=== PATIENT | male | born 1955 | race African-American/Black ===

== ENCOUNTER 2016-10-16 09:19 | Emergency (ER) | payer OTHER ==
[~2016-10-16] VITALS: Ht 175.3 cm; Wt 94.8 kg
[~2016-10-16 09:19] MED LIST: HYDR-971 PO
[2016-10-16 09:24] VITALS: BP 120/79
--- NOTE | 2016-10-16 09:54 | PDOC ---
OBSERVATION CRITERIA FORMS Observation Criteria Form: GENERAL CRITERIA: OBSERVATION CARE USE THIS FORM ONLY WHEN INPATIENT ADMISSION CRITERIA ARE NOT MET. (Place X for any and all applicable criteria): Placement for observation care may be appropriate for a patient with ALL of the following(1)(2)(3))(4): []I. Observation care is appropriate as indicated by care requirements that are ALL of the following: []a) Beyond the scope of a usual outpatient care episode [A] []b) Expected to be short term [B] []c) Appropriate for observation care as indicated by ANY ONE of the following: []i) Diagnostic evaluation needed (eg, rule out HI) []ii) Acute treatment and response evaluation needed (eg, drug reaction) []iii) Monitoring for event (eg, arrhythmia) or recovery (eg, from drug ingestion) [X]II. Observation care is needed for ANY ONE of the following: []a) Significant adverse reaction to treatment or procedure []b) Abnormal finding (eg from lab. test, imaging study, physical exam) prompting significant concern(5)(6))(7) []c) Cardiovascular abnormalities (eg, hypertensive urgency, monitoring for cardiac injury)(7)(8)(9)(10))(11)(12) [X]d) Respiratory abnormalities (eg, dyspnea, bronchospasm, suspected aspiration)(11)(12)(15)(16) []e) Infectious processes (eg, hepatitis, observation for antibiotic response)(6)(17)(15)( 18)(19)(20) []f) Neurologic abnormalities (eg, unexplained abnormal mental status, multiple sclerosis exacerbation)(21) []g) Gastroenterologic problems (eg, pancreatitis; evaluation for suspected : ileus, obstruction, or appendicitis) []h) Obstetric issues (eg, active spontaneous ; suspected: ectopic , active labor, or significant antepartum complication) []i) Head and neck disease (eg, acute glaucoma, severe labyrinthitis) []j) Electrolyte or metabolic derangements (eg, sodium greater than 150 mEq /L (mmol/L)(18)(24) []k) Injuries (eg, snake bite, vehicular trauma(25)(26)(27)(28) []l) Control of severe vomiting or temperature abnormalities needed(29)(30) (31) []m) Severe pain requiring acute management []n) Behavioral health issues requiring further evaluation and disposition arrangement, including a patient who is ANY ONE of the following (34)(35)( 36)(37) []i) A danger to self (eg, self-mutilating or suicidal behavior) []ii) A danger to others (eg, assaultive or homicidal behavior) []iii) Incapacitated because of grave disability (eg, severe regression with inability to provide for self) []iv) Experiencing withdrawal or other drug-induced disorder []o) Monitoring or clinical intervention, including ANY ONE of the following [A] (11)(17): []i) Repetitive vital signs, neurologic signs, or vascular checks(6) (7)(8)(14)(15)(16)(30)(21)(23)(31)(38) []ii) Cardiac or respiratory monitoring(8)(9)(10)(13)(14)(15)(16) []iii) monitoring []iv) IV fluid replacement []v) IV medication or electrolyte infusions []vi) Respiratory therapy []vii) Rapid diagnostic testing (eg, observation pending laboratory or other testing results)(6)(9)(10)(23)(30)(31) []viii) Oxygen supplementation []ix) Other care requirements that exceed usual outpatient care []p) A child whose situation includes ANY ONE of the following (5)(6)(14)(15) (40)(41)(42)(31)(39)(43): []i) Clinical response to outpatient therapy uncertain []ii) Outpatient supervision by parents or caregivers uncertain []q) Monitoring needed after treatment []r) Temperature abnormalities requiring further evaluation []s) Poisoning The original [employer] [facility] [place] content created by [employer] has been revised. The portions of the content which have been revised are identified through the use of italic text, and [facility] [employer] has neither reviewed nor approved the modified material. All other unmodified content is copyright [employer] [facility] [place]. Please see references footnoted in the original [employer] [facility] [place] edition 2016 OCF completed for patient?: Yes KYRA MENDOZA Oct 16, 2016 09:54
[2016-10-16] MEDS ORDERED: IV NORMAL SALINE 1000ML BAG 1,000 ML IV SCH (10:20)
--- NOTE | 2016-10-16 10:25 | PHYS DOC ---
Past Medical History Past Medical History: COPD, CVA, Depression, Diabetes-Type II, GERD, Hypertension, Stroke Additional Past Medical Histor: gout, chronic neck pain,DDD Past Surgical History: Other Additional Past Surgical Histo: facial reconstruction Additional Information: 0.5 PPD Alcohol Use: None Drug Use: None Adult General Chief Complaint Chief Complaint: SHORTNESS OF BREATH HPI HPI Patient is a 61 year old male who presents with complaint of cough for the past 2 weeks. Patient states that his cough has become productive over the past few days of green sputum. Patient states he's been having headaches and has been having coughing spells that makes him feel like he will pass out. Patient has history of COPD and has been taking Spiriva and Advair at home. Patient states that he has an albuterol inhaler but has not been using it to help with symptoms. Patient states that he has been getting worsening shortness of breath with exertion. Patient rates the pain and has had currently as 9 out of 10. Patient states that it worsens with cough. Patient denies any fevers. Patient states that he did receive his flu shot this fall. Review of Systems Review of Systems Constitutional: Denies fever or chills [] Eyes: Denies change in visual acuity, redness, or eye pain [] HENT: Denies nasal congestion or sore throat [] Respiratory: Productive cough, shortness of breath [] Cardiovascular: Denies chest pain or edema [] GI: Denies abdominal pain, nausea, vomiting, bloody stools or diarrhea [] : Denies dysuria or hematuria [] Musculoskeletal: Denies back pain or joint pain [] Integument: Denies rash or skin lesions [] Neurologic: Headache, denies focal weakness or sensory changes [] Endocrine: Denies polyuria or polydipsia [] Current Medications Current Medications Current Medications Medications (Trade) Dose Ordered Sig/Justina Start Time Stop Time Status Last Admin Dose Admin Albuterol/ Ipratropium (Duoneb) 6 ml 1X ONCE 10/16/16 10:30 10/16/16 10:31 DC 10/16/16 10:56 6 ML Fentanyl Citrate (Fentanyl 2ml Vial) 50 mcg PRN Q15MIN PRN 10/16/16 10:30 10/16/16 12:24 DC 10/16/16 10:51 50 MCG Levofloxacin (Levaquin) 750 mg 1X ONCE 10/16/16 12:00 10/16/16 12:01 DC 10/16/16 12:18 750 MG Methylprednisolone Sodium Succinate (Solu-Medrol 125mg Vial) 125 mg 1X ONCE 10/16/16 10:30 10/16/16 10:31 DC 10/16/16 10:50 125 MG Sodium Chloride (Iv Sodium Chloride 0.9% 1000ml Bag) 1,000 ml @ 1,000 mls/hr Q1H 10/16/16 10:20 10/16/16 11:19 DC 10/16/16 10:49 1,000 MLS/HR Allergies Allergies Allergies Coded Allergies Type Severity Reaction Last Updated Verified Sulfa (Sulfonamide Antibiotics) Allergy Unknown HIVES 11/28/14 No Physical Exam Physical Exam Constitutional: Alert, afebrile, appears in mild to moderate discomfort. [] HENT: Normocephalic, atraumatic, bilateral external ears normal, oropharynx moist, no oral exudates, nose normal. [] Eyes: PERRLA, EOMI, conjunctiva normal, no discharge. [] Neck: Normal range of motion, no tenderness, supple, no stridor. [] Cardiovascular:Heart rate regular rhythm, no murmur [] Lungs & Thorax: Mild to moderate restriction of air movement bilaterally, mild expiratory wheezes, no rales [] Abdomen: Bowel sounds normal, soft, no tenderness, no masses, no pulsatile masses. [] Skin: Warm, dry, no erythema, no rash. [] Back: No tenderness, no CVA tenderness. [] Extremities: No tenderness, no cyanosis, no clubbing, ROM intact, no edema. [] Neurologic: Alert and oriented X 3, normal motor function, normal sensory function, no focal deficits noted. [] Current Patient Data Vital Signs Vital Signs Date Time Temp Pulse Resp B/P Pulse Ox O2 Delivery O2 Flow Rate FiO2 10/16/16 10:51 18 98 Room Air 10/16/16 09:24 98.5 85 120/79 98.5 Lab Values Laboratory Tests Test 10/16/16 10:41 White Blood Count 6.0x10^3/uL (4.0-11.0) Red Blood Count 4.56x10^6/uL (4.30-5.70) Hemoglobin 13.3g/dL (13.0-17.5) Hematocrit 39.9% (39.0-53.0) Mean Corpuscular Volume 87fL (79-100) Mean Corpuscular Hemoglobin 29pg (25-35) Mean Corpuscular Hemoglobin Concent 33g/dL (31-37) Red Cell Distribution Width 15.9% (11.5-14.5) H Platelet Count 187x10^3/uL (140-400) Neutrophils (%) (Auto) 65% (31-73) Lymphocytes (%) (Auto) 27% (24-48) Monocytes (%) (Auto) 6% (0-9) Eosinophils (%) (Auto) 1% (0-3) Basophils (%) (Auto) 1% (0-3) Neutrophils # (Auto) 4.0x10^3uL (1.8-7.7) Lymphocytes # (Auto) 1.6x10^3/uL (1.0-4.8) Monocytes # (Auto) 0.4x10^3/uL (0.0-1.1) Eosinophils # (Auto) 0.1x10^3/uL (0.0-0.7) Basophils # (Auto) 0.0x10^3/uL (0.0-0.2) Sodium Level 140mmol/L (136-145) Potassium Level 4.1mmol/L (3.5-5.1) Chloride Level 103mmol/L (98-107) Carbon Dioxide Level 25mmol/L (21-32) Anion Gap 12 (6-14) Blood Urea Nitrogen 14mg/dL (8-26) Creatinine 1.2mg/dL (0.7-1.3) Estimated GFR (Cockcroft-Gault) 74.0 BUN/Creatinine Ratio 12 (6-20) Glucose Level 196mg/dL (70-99) H Calcium Level 9.4mg/dL (8.5-10.1) Total Bilirubin 0.4mg/dL (0.2-1.0) Aspartate Amino Transferase (AST) 16U/L (15-37) Alanine Aminotransferase (ALT) 43U/L (16-63) Alkaline Phosphatase 77U/L (46-116) Creatine Kinase 130U/L (39-308) Creatine Kinase MB (Mass) 1.4ng/mL (0.0-3.6) Creatine Kinase MB Relative Index 1.1% (0-4) Troponin I Quantitative < 0.017ng/mL (0.000-0.055) VQ-Qro-Q-Type Natriuretic Peptide 21pg/mL (0-124) Total Protein 7.5g/dL (6.4-8.2) Albumin 3.7g/dL (3.4-5.0) Albumin/Globulin Ratio 1.0 (1.0-1.7) Laboratory Tests 10/16/16 10:41 Laboratory Tests 10/16/16 10:41 EKG EKG Interpreted by me: Heart rate 84, sinus rhythm, leftward axis, normal intervals no acute ST/T-wave abnormalities present [] Radiology/Procedures Radiology/Procedures [facility] [address] [place] [address] IMAGING REPORT Signed PATIENT: OMER WATTS ACCOUNT: [id number] : 1955 LOCATION: ER AGE: 61 SEX: M EXAM STATUS: PRE ER ORD. PHYSICIAN: JAYDEN WILSON MD REASON: cough for 2 weeks PROCEDURE: PORTABLE CHEST 1V EXAM: Chest, single view. HISTORY: Cough. COMPARISON: 02/13/2016. FINDINGS: A frontal view of the chest is obtained. There is no infiltrate, effusion or pneumothorax. The heart is normal in size. There is a nodular opacity overlying the right lower lobe likely due to a nipple shadow. IMPRESSION: 1. No acute pulmonary finding. 2. Small nodular opacity overlying the right lower lobe likely due to a nipple shadow. Follow-up following placement of nipple markers can be performed to exclude a pulmonary nodule in this location. DICTATED and SIGNED BY: CISCO AGUILAR MD DATE: 10/16/16 1043 CC: CECELIA HA; JAYDEN WILSON MD ~ [] Course & Med Decision Making Course & Med Decision Making Pertinent Labs and Imaging studies reviewed. (See chart for details) The patient was given DuoNeb and IV Solu-Medrol in the emergency department. Patient's chest x-ray does not show effusion or consolidation, however clinically the patient is producing green sputum. This patient with history of COPD may still have the beginnings of atypical pneumonia, thus the patient will be started on oral Levaquin for treatment. Patient will also be continued on prednisone therapy as outpatient. Due to history diabetes, I recommended that for the next 4 days, the patient increase his glipizide prescription to 7.5 mg in the morning and 5 mg at night with meals. Recommended strict monitoring of patient's blood sugars at home. The patient's radiology read noted a right lower lung density which appears consistent with a nipple shadow. Advised follow -up in 2-3 days a primary doctor and return to emergency department for any worsening symptoms. Patient voiced understanding and in agreement with treatment plan. Dragon Disclaimer Dragon Disclaimer This electronic medical record was generated, in whole or in part, using a voice recognition dictation system. Departure Departure Impression: Primary Impression: Cough Additional Impression: COPD exacerbation Disposition: 01 HOME, SELF-CARE Condition: IMPROVED Referrals: CECELIA HA (PCP) Patient Instructions: Chronic Obstructive Pulmonary Disease Exacerbation, Cough , Adult Additional Instructions: For the next 4 days, it is recommended that you take your glipizide medication as follows: 7.5 mg in the morning and 5 mg at nighttime. You'll be treated with a 5 day course of prednisone for treatment of your COPD exacerbation. He will also be prescribed an antibiotic as there is suspicion you may have early pneumonia that is not showing up on your chest x-ray at this time. Follow-up with your primary doctor in 2-3 days. Return to the emergency department for any worsening symptoms. Scripts Albuterol Sulfate (Proair Hfa Inhaler)8.5 Gm Hfa.aer.ad2 Puff INH Q4-6HRS PRN SHORTNESS OF BREATH #1 INHALER Ref 0 Prov:JAYDEN WILSON MD 10/16/16 Levofloxacin (Levaquin)750 Mg Tablet1 Tab PO DAILY #4 TAB Prov:JAYDEN WILSON MD 10/16/16 Prednisone 20 Mg Tablet1 Tab PO BID #8 TAB Begin your first dose tomorrow morning. Prov:JAYDEN WILSON MD 10/16/16 Problem Qualifiers JAYDEN WILSON MD Oct 16, 2016 10:25
--- NOTE | 2016-10-16 10:28 | EKG ---
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
[2016-10-16] MEDS ORDERED: FENTANYL PF 100 MCG/2 ML VIAL. IV PRN (10:30)
[2016-10-16] MEDS ORDERED: methylPREDNISolone SOD SUCC PF 125 MG/2 ML VIAL. IV ONE (10:30)
[2016-10-16] MEDS ORDERED: IPRATRPIUM/ALBUTEROL 0.5/2.5MG 3 ML NEBU. NEB ONE (10:30)
--- NOTE | 2016-10-16 10:47 | RAD ---
EXAM: Chest, single view. HISTORY: Cough. COMPARISON: 02/13/2016. FINDINGS: A frontal view of the chest is obtained. There is no infiltrate, effusion or pneumothorax. The heart is normal in size. There is a nodular opacity overlying the right lower lobe likely due to a nipple shadow. IMPRESSION: 1. No acute pulmonary finding. 2. Small nodular opacity overlying the right lower lobe likely due to a nipple shadow. Follow-up following placement of nipple markers can be performed to exclude a pulmonary nodule in this location.
[2016-10-16 10:53] LABS: BASO % 1 % (0-3); EOS % 1 % (0-3); HEMATOCRIT 39.9 % (39.0-53.0); HEMOGLOBIN 13.3 g/dL (13.0-17.5); LYMPH # 1.6 x10^3/uL (1.0-4.8); LYMPH % 27 % (24-48); MEAN CORPUSCULAR HEMOGLOBIN 29 pg (25-35); MEAN CORPUSCULAR HGB CONC 33 g/dL (31-37); MEAN CORPUSCULAR VOLUME 87 fL (79-100); MONO % 6 % (0-9); NEUT % 65 % (31-73); PLATELET COUNT 187 x10^3/uL (140-400); RED BLOOD COUNT 4.56 x10^6/uL (4.30-5.70); RED CELL DISTRIBUTION WIDTH 15.9 % (11.5-14.5)
[2016-10-16 11:05] LABS: CALCIUM 9.4 mg/dL (8.5-10.1); CREATININE 1.2 mg/dL (0.7-1.3); POTASSIUM 4.1 mmol/L (3.5-5.1)
[2016-10-16 11:11] LABS: ALBUMIN 3.7 g/dL (3.4-5.0); TOTAL BILIRUBIN 0.4 mg/dL (0.2-1.0); TOTAL PROTEIN 7.5 g/dL (6.4-8.2)
[2016-10-16 11:20] LABS: CKMB INDEX 1.1 % (0-4); CKMB MASS 1.4 ng/mL (0.0-3.6)
[2016-10-16] MEDS ORDERED: LEVO750T31 PO (11:56)
[2016-10-16] MEDS ORDERED: PROAIR HFA8.5 GM INH (11:56)
[2016-10-16] MEDS ORDERED: PRED20TA PO (11:56)
[2016-10-16] MEDS ORDERED: LEVOFLOXACIN 750 MG TABLET. PO ONE (12:00)
== END 2016-10-16 12:24 | disposition home or self-care (01) ==
LOC: ER 09:19
DX: J44.1 Chronic obstructive pulmonary disease with (acute) exacerbation (principal); F32.9 Major depressive disorder, single episode, unspecified; E11.9 Type 2 diabetes mellitus without complications; K21.9 Gastro-esophageal reflux disease without esophagitis; I10 Essential (primary) hypertension; G89.29 Other chronic pain; F17.210 Nicotine dependence, cigarettes, uncomplicated; M10.9 Gout, unspecified; Z86.73 Personal history of transient ischemic attack (TIA), and cerebral infarction without residual deficits; Z88.2 Allergy status to sulfonamides; Z79.899 Other long term (current) drug therapy
CPT/HCPCS: 36415; 71010; 80053; 82553; 83880; 84484; 85027; 93005; 94250; 94640; 96361; 96374; 96375; 99285; J2930; J3010; J7030; J7620

== ENCOUNTER 2016-11-30 05:38 | Emergency (ER) | payer OTHER ==
[~2016-11-30] VITALS: Ht 180.3 cm; Wt 95.3 kg
[~2016-11-30 05:38] MED LIST changes: +LEVO750T31 PO; +PRED20TA PO; +PROAIR HFA8.5 GM INH
[2016-11-30] MEDS ORDERED: HYDROCODONE/APAP 5/325MG TABLET. PO ONE (06:30)
--- NOTE | 2016-11-30 06:31 | EKG ---
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
[2016-11-30 06:40] LABS: CALCIUM 9.8 mg/dL (8.5-10.1); CREATININE 1.3 mg/dL (0.7-1.3); GFR 67.5; POTASSIUM 3.9 mmol/L (3.5-5.1)
[2016-11-30 06:45] LABS: ALBUMIN 3.7 g/dL (3.4-5.0); DIRECT BILIRUBIN 0.1 mg/dL (0.0-0.2); TOTAL BILIRUBIN 0.3 mg/dL (0.2-1.0); TOTAL PROTEIN 7.2 g/dL (6.4-8.2)
[2016-11-30 06:48] LABS: BASO % 0 % (0-3); EOS % 1 % (0-3); HEMATOCRIT 40.3 % (39.0-53.0); HEMOGLOBIN 12.9 g/dL (13.0-17.5); LYMPH # 1.3 x10^3/uL (1.0-4.8); LYMPH % 18 % (24-48); MEAN CORPUSCULAR HEMOGLOBIN 29 pg (25-35); MEAN CORPUSCULAR HGB CONC 32 g/dL (31-37); MEAN CORPUSCULAR VOLUME 90 fL (79-100); MONO % 6 % (0-9); NEUT % 75 % (31-73); PLATELET COUNT 165 x10^3/uL (140-400); RED BLOOD COUNT 4.47 x10^6/uL (4.30-5.70); RED CELL DISTRIBUTION WIDTH 15.5 % (11.5-14.5); WHITE BLOOD COUNT 7.4 x10^3/uL (4.0-11.0)
--- NOTE | 2016-11-30 07:19 | RAD ---
EXAM: Chest one view. HISTORY: Chest pain. COMPARISON: 10/16/2016. FINDINGS: A frontal view of the chest is obtained. There are no confluent infiltrates. There is no pneumothorax or pleural effusion. The heart is not enlarged. IMPRESSION: 1. No confluent infiltrates.
[2016-11-30 07:31] LABS: NEGATIVE OBC STREP NEG; POSITIVE OBC STREP POS
[2016-11-30] MEDS ORDERED: PROAIR HFA8.5 GM INH (07:34)
--- NOTE | 2016-11-30 07:35 | PHYS DOC ---
Past Medical History Past Medical History: COPD, CVA, Depression, Diabetes-Type II, GERD, Hypertension, Stroke Additional Past Medical Histor: gout, chronic neck pain,DDD Past Surgical History: Other Additional Past Surgical Histo: facial reconstruction Alcohol Use: None Drug Use: None Adult General Chief Complaint Chief Complaint: MULTIPLE COMPLAINTS HPI HPI 61-year-old male presenting to the emergency department today with a cough for 3 months. He complains of sharp chest wall pain. The pain is mild intermittent worse with deep breaths. It is in his right ribs. Nonradiating. He also has a cough that is nonproductive. He denies fevers or chills. He denies hemoptysis unilateral leg swelling personal or family history of blood clotting disorder. He denies diaphoresis. It is not a pressure. Review of systems is negative for nausea vomiting diaphoresis headache fevers or chills. All other review of systems is negative unless otherwise noted in history of present illness. Review of Systems Review of Systems SEE ABOVE. Current Medications Current Medications Current Medications Medications (Trade) Dose Ordered Sig/Justina Start Time Stop Time Status Last Admin Dose Admin Acetaminophen/ Hydrocodone Bitart (Lortab 5/325) 2 tab 1X ONCE 11/30/16 06:30 11/30/16 06:31 DC 11/30/16 06:39 2 TAB Allergies Allergies Allergies Coded Allergies Type Severity Reaction Last Updated Verified Sulfa (Sulfonamide Antibiotics) Allergy Unknown HIVES 11/28/14 No Physical Exam Physical Exam Constitutional: Well developed, well nourished, no acute distress, non-toxic appearance. HENT: Normocephalic, atraumatic, bilateral external ears normal, oropharynx moist, no oral exudates, nose normal. Eyes: PERRLA, EOMI, conjunctiva normal, no discharge. [] Neck: Normal range of motion, no tenderness, supple, no stridor. Cardiovascular:Heart rate regular rhythm, no murmur Lungs & Thorax: Bilateral breath sounds clear to auscultation [] Abdomen: Bowel sounds normal, soft, no tenderness, no masses, no pulsatile masses. Skin: Warm, dry, no erythema, no rash. Back: No tenderness, no CVA tenderness. Extremities: No tenderness, no cyanosis, no clubbing, ROM intact, no edema. [] Neurologic: Alert and oriented X 3, normal motor function, normal sensory function, no focal deficits noted. Psychologic: Affect normal, judgement normal, mood normal. [] Current Patient Data Vital Signs Vital Signs Date Time Temp Pulse Resp B/P Pulse Ox O2 Delivery O2 Flow Rate FiO2 11/30/16 07:00 90 155/84 96 Room Air 11/30/16 06:39 20 11/30/16 05:45 98.7 98.7 Lab Values Laboratory Tests Test 11/30/16 06:06 White Blood Count 7.4x10^3/uL (4.0-11.0) Red Blood Count 4.47x10^6/uL (4.30-5.70) Hemoglobin 12.9g/dL (13.0-17.5) L Hematocrit 40.3% (39.0-53.0) Mean Corpuscular Volume 90fL (79-100) Mean Corpuscular Hemoglobin 29pg (25-35) Mean Corpuscular Hemoglobin Concent 32g/dL (31-37) Red Cell Distribution Width 15.5% (11.5-14.5) H Platelet Count 165x10^3/uL (140-400) Neutrophils (%) (Auto) 75% (31-73) H Lymphocytes (%) (Auto) 18% (24-48) L Monocytes (%) (Auto) 6% (0-9) Eosinophils (%) (Auto) 1% (0-3) Basophils (%) (Auto) 0% (0-3) Neutrophils # (Auto) 5.6x10^3uL (1.8-7.7) Lymphocytes # (Auto) 1.3x10^3/uL (1.0-4.8) Monocytes # (Auto) 0.4x10^3/uL (0.0-1.1) Eosinophils # (Auto) 0.0x10^3/uL (0.0-0.7) Basophils # (Auto) 0.0x10^3/uL (0.0-0.2) Sodium Level 142mmol/L (136-145) Potassium Level 3.9mmol/L (3.5-5.1) Chloride Level 104mmol/L (98-107) Carbon Dioxide Level 26mmol/L (21-32) Anion Gap 12 (6-14) Blood Urea Nitrogen 18mg/dL (8-26) Creatinine 1.3mg/dL (0.7-1.3) Estimated GFR (Cockcroft-Gault) 67.5 Glucose Level 189mg/dL (70-99) H Calcium Level 9.8mg/dL (8.5-10.1) Total Bilirubin 0.3mg/dL (0.2-1.0) Direct Bilirubin 0.1mg/dL (0.0-0.2) Aspartate Amino Transferase (AST) 15U/L (15-37) Alanine Aminotransferase (ALT) 29U/L (16-63) Alkaline Phosphatase 83U/L (46-116) Troponin I Quantitative < 0.017ng/mL (0.000-0.055) NW-Ret-I-Type Natriuretic Peptide 24pg/mL (0-124) Total Protein 7.2g/dL (6.4-8.2) Albumin 3.7g/dL (3.4-5.0) Lipase 177U/L (73-393) Group A Streptococcus Rapid Negative (NEGATIVE) Laboratory Tests 11/30/16 06:06 Laboratory Tests 11/30/16 06:06 EKG EKG EKG shows sinus rhythm with mildly tachy rate. Normal intervals. Normal axis. ST segments are congruent. Not suggestive of ACS. Reviewed by myself.[] Radiology/Procedures Radiology/Procedures [] Course & Med Decision Making Course & Med Decision Making Pertinent Labs and Imaging studies reviewed. (See chart for details) [] 61-year-old gentleman presenting to the emergency department today with cough sore throat chest pain. Vital signs showed afebrile with mild tachycardia. Otherwise mildly hypertensive. Physical exam otherwise unremarkable. Chest x-ray unremarkable. EKG showed mild tachycardia otherwise unremarkable. One work sent which showed mild anemia. Otherwise troponin negative. Patient's pain and been present for greater than 6 hours. The patient was subsequently discharged home to follow up with his primary care physician for outpatient referral, further evaluation workup and care. Dragon Disclaimer Dragon Disclaimer This electronic medical record was generated, in whole or in part, using a voice recognition dictation system. Departure Departure Impression: Primary Impression: Cough Additional Impressions: Bronchitis Sore throat Referrals: NO PCP (PCP) Patient Instructions: Chest Pain (Nonspecific), Cough, Adult, Sore Throat, Easy -to-Read Additional Instructions: Thank you for allowing us to participate in your care today. Followup with your primary care physician in 3 days if your symptoms do not improve. If you do not have a primary care provider you can ask for a list of our primary care providers. Return to the emergency department you have any new or concerning findings. This should be evaluated by the primary care physician and any necessary consulting services for continued management within a few days after discharge. Return to emergency room if you have any new or concerning symptoms including but not limited to fever, chills, nausea, vomiting, intractable pain, any new rashes, chest pain, shortness of air, uncontrolled bleeding, difficulty breathing, and/or vision loss. Scripts Azithromycin (Azithromycin Tablet)250 Mg Tablet1 Pkg PO UD #6 TAB Prov:MARGARITO CHACON MD 11/30/16 Prednisone 50 Mg [id number] Mg PO DAILY #5 TAB Prov:MARGARITO CHACON MD 11/30/16 Albuterol Sulfate (Proair Hfa Inhaler)8.5 Gm Hfa.aer.ad1 Puff INH PRN Q6HRS PRN SHORTNESS OF BREATH #1 INHALER Prov:MARGARITO CHACON MD 11/30/16 Problem Qualifiers MARGARITO CHACON MD Nov 30, 2016 07:35
[2016-11-30] MEDS ORDERED: AZIT250T6 PO (07:50)
[2016-11-30] MEDS ORDERED: PRED50TA PO (07:50)
[2016-11-30 08:00] VITALS: BP 152/86
== END 2016-11-30 08:07 | disposition home or self-care (01) ==
LOC: ER 05:38
DX: J40 Bronchitis, not specified as acute or chronic (principal); J02.9 Acute pharyngitis, unspecified; R07.89 Other chest pain; G89.29 Other chronic pain; J44.9 Chronic obstructive pulmonary disease, unspecified; K21.9 Gastro-esophageal reflux disease without esophagitis; E11.9 Type 2 diabetes mellitus without complications; I10 Essential (primary) hypertension; Z86.73 Personal history of transient ischemic attack (TIA), and cerebral infarction without residual deficits; M10.9 Gout, unspecified; Z88.2 Allergy status to sulfonamides
CPT/HCPCS: 36415; 71010; 80048; 80076; 83690; 83880; 84484; 85027; 87070; 87880; 93005; 99285-25

== ENCOUNTER 2017-06-11 08:53 | Emergency (ER) | payer OTHER ==
[~2017-06-11] VITALS: Ht 180.3 cm; Wt 90.7 kg
[~2017-06-11 08:53] MED LIST changes: +AZIT250T6 PO; +PRED50TA PO
--- NOTE | 2017-06-11 09:29 | PHYS DOC ---
Past Medical History Past Medical History: COPD, CVA, Depression, Diabetes-Type II, GERD, Hypertension, Stroke Additional Past Medical Histor: gout, chronic neck pain,DDD Past Surgical History: Other Additional Past Surgical Histo: facial reconstruction Alcohol Use: None Drug Use: None Adult General Chief Complaint Chief Complaint: Neck Pain HPI HPI Patient is a 62 year old male presents to the emergency department with a 3 week history of neck pain and chest pain. Patient states he has taken flexeril for the pain with no relief. Patient states his pain starts in the neck and radiates to the chest and into the left arm, describes the pain as sharp in nature. He denies SOA. Denies taking anything for the pain at home besides flexeril. Review of Systems Review of Systems Constitutional: Denies fever or chills [] Eyes: Denies change in visual acuity, redness, or eye pain [] HENT: Denies nasal congestion or sore throat [] Respiratory: Denies cough or shortness of breath [] Cardiovascular: No additional information not addressed in HPI [] GI: Denies abdominal pain, nausea, vomiting, bloody stools or diarrhea [] : Denies dysuria or hematuria [] Musculoskeletal: Denies back pain or joint pain [] Integument: Denies rash or skin lesions [] Neurologic: Denies headache, focal weakness or sensory changes [] Endocrine: Denies polyuria or polydipsia [] Current Medications Current Medications Current Medications Medications (Trade) Dose Ordered Sig/Justina Start Time Stop Time Status Last Admin Dose Admin Acetaminophen/ Hydrocodone Bitart (Lortab 5/325) 1 tab 1X ONCE 06/11/17 10:45 06/11/17 10:46 Aspirin (Ghada Aspirin) 325 mg 1X ONCE 06/11/17 09:30 06/11/17 09:31 DC 06/11/17 09:54 325 MG Allergies Allergies Allergies Coded Allergies Type Severity Reaction Last Updated Verified Sulfa (Sulfonamide Antibiotics) Allergy Unknown HIVES 11/28/14 No Physical Exam Physical Exam Constitutional: Well developed, well nourished, no acute distress, non-toxic appearance. [] HENT: Normocephalic, atraumatic, bilateral external ears normal, oropharynx moist, no oral exudates, nose normal. [] Eyes: PERRLA, EOMI, conjunctiva normal, no discharge. [] Neck: Normal range of motion, no tenderness, supple, no stridor. [] Cardiovascular:Heart rate regular rhythm, no murmur [] Lungs & Thorax: Bilateral breath sounds clear to auscultation [] Skin: Warm, dry, no erythema, no rash. [] Back: Left paraspinal tenderness noted. Increase discomfort noted with raising the left arm. Extremities: No tenderness, no cyanosis, no clubbing, ROM intact, no edema. [] Neurologic: Alert and oriented X 3, normal motor function, normal sensory function, no focal deficits noted. [] Psychologic: Affect normal, judgement normal, mood normal. [] Current Patient Data Vital Signs Vital Signs Date Time Temp Pulse Resp B/P (MAP) Pulse Ox O2 Delivery O2 Flow Rate FiO2 06/11/17 09:00 98.1 69 18 134/77 (96) 99 Room Air 98.1 Lab Values Laboratory Tests Test 06/11/17 10:00 White Blood Count 5.1 x10^3/uL (4.0-11.0) Red Blood Count 4.55 x10^6/uL (4.30-5.70) Hemoglobin 13.8 g/dL (13.0-17.5) Hematocrit 40.7 % (39.0-53.0) Mean Corpuscular Volume 90 fL (79-100) Mean Corpuscular Hemoglobin 30 pg (25-35) Mean Corpuscular Hemoglobin Concent 34 g/dL (31-37) Red Cell Distribution Width 15.0 % (11.5-14.5) H Platelet Count 191 x10^3/uL (140-400) Neutrophils (%) (Auto) 58 % (31-73) Lymphocytes (%) (Auto) 34 % (24-48) Monocytes (%) (Auto) 7 % (0-9) Eosinophils (%) (Auto) 1 % (0-3) Basophils (%) (Auto) 1 % (0-3) Neutrophils # (Auto) 2.9 x10^3uL (1.8-7.7) Lymphocytes # (Auto) 1.7 x10^3/uL (1.0-4.8) Monocytes # (Auto) 0.3 x10^3/uL (0.0-1.1) Eosinophils # (Auto) 0.0 x10^3/uL (0.0-0.7) Basophils # (Auto) 0.0 x10^3/uL (0.0-0.2) Sodium Level 138 mmol/L (136-145) Potassium Level 4.7 mmol/L (3.5-5.1) Chloride Level 101 mmol/L (98-107) Carbon Dioxide Level 27 mmol/L (21-32) Anion Gap 10 (6-14) Blood Urea Nitrogen 22 mg/dL (8-26) Creatinine 1.3 mg/dL (0.7-1.3) Estimated GFR (Cockcroft-Gault) 67.2 BUN/Creatinine Ratio 17 (6-20) Glucose Level 150 mg/dL (70-99) H Calcium Level 9.5 mg/dL (8.5-10.1) Total Bilirubin 0.3 mg/dL (0.2-1.0) Aspartate Amino Transferase (AST) 20 U/L (15-37) Alanine Aminotransferase (ALT) 25 U/L (16-63) Alkaline Phosphatase 70 U/L (46-116) Troponin I Quantitative < 0.017 ng/mL (0.000-0.055) Total Protein 8.0 g/dL (6.4-8.2) Albumin 3.9 g/dL (3.4-5.0) Albumin/Globulin Ratio 1.0 (1.0-1.7) Laboratory Tests 06/11/17 10:00 Laboratory Tests 06/11/17 10:00 EKG EKG EKG completed at 0901 with a HR of 68, no STEMI per Dr Lind[] Radiology/Procedures Radiology/Procedures [][facility] [id number] [place] [address] IMAGING REPORT Signed PATIENT: OMER WATTS ACCOUNT: [id number] : 1955 LOCATION: ER AGE: 62 SEX: M EXAM STATUS: PRE ER ORD. PHYSICIAN: YUN DELGADILLO APRN REASON: neck pain PROCEDURE: CERVICAL SPINE 2-3V Cervical spine, 3 views, 06/11/2017: History: Neck pain There is a mild left convexity cervical scoliosis. C6 and C7 were not optimally visualized in the lateral projection due to the high position of the patient's shoulders. No fracture or dislocation is identified. There are mild to moderate scattered spurs in the mid and lower cervical spine. The prevertebral soft tissues are unremarkable. IMPRESSION: 1. Moderate degenerative change. 2. Mild cervical scoliosis. 3. No acute bony abnormality is detected. DICTATED and SIGNED BY: TEMI JUARES MD DATE: 06/11/17958 CC: YUN DELGADILLO APRN; NO PCP ~ [facility] [address] [place] [address] IMAGING REPORT Signed PATIENT: OMER WATTS ACCOUNT: [id number] : 1955 LOCATION: ER AGE: 62 SEX: M EXAM STATUS: PRE ER ORD. PHYSICIAN: YUN DELGADILLO APRN REASON: chest pain PROCEDURE: CHEST PA & LATERAL Chest, 2 views, 06/11/2017: History: Neck pain radiating to the left shoulder Comparison is made to a study from 11/30/2016. The heart size and pulmonary vascularity are normal. No pulmonary infiltrates are seen. There is no evidence of pleural fluid. There are mild scattered spurs in the spine. IMPRESSION: No acute cardiopulmonary abnormality is detected. DICTATED and SIGNED BY: TEMI JUARES MD DATE: 06/11/1758 CC: YUN DELGADILLO APRN; NO PCP ~ Course & Med Decision Making Course & Med Decision Making Pertinent Labs and Imaging studies reviewed. (See chart for details) CBC, CMP, troponin, EKG, chest x-ray, x-ray of the cervical spine are all within normal limits. Patient does have degenerative changes in the neck area. Patient had taken a Flexeril last night with minimal relief of pain and discomfort. He was provided with aspirin prophylactically here in the emergency department. Patient will be recommended to continue the Flexeril at home ice packs to the areas of discomfort. He'll be provided with some hydrocodone for severe pain and discomfort. Patient was also instructed that hydrocodone will cause drowsiness do not take if you Also recommended ibuprofen 600 mg every 8 hours with food to help with inflammation and discomfort. Patient was also encouraged to follow-up with a primary care physician in the next 7-10 days for further evaluation if he continues to have back pain and discomfort. Patient was provided with signs and symptoms to return back to the emergency department. Patient agrees with discharge instructions treatment regimens and follow-up recommendations. All questions and concerns was answered at the patient's bedside. [] Dragon Disclaimer Dragon Disclaimer This electronic medical record was generated, in whole or in part, using a voice recognition dictation system. Departure Departure Impression: Primary Impression: Cervical spine pain Additional Impression: Shoulder pain Disposition: HOME, SELF-CARE Condition: STABLE Referrals: NO PCP (PCP) Patient Instructions: Back Pain, Adult, [id number] Additional Instructions: Activity as tolerated. Continue to use her Flexeril to help with muscle spasms and discomfort. Hydrocodone for severe pain and discomfort this medication will cause drowsiness do not take any be alert and oriented. Ibuprofen 600 mg every 8 hours with food stop taking few develop an upset stomach. Ice packs on 20 minutes off 20 minutes several times a day. Follow-up to primary care physician in the next 7-10 days if he continued have pain and discomfort. Return back to emergency prior signs and symptoms of become worse. Scripts Hydrocodone/Apap 5-325 (NORCO 5-325 TABLET) 1 Each Tablet 1 TAB PO PRN Q6HRS Y for PAIN, #10 TAB 0 Refills Prov: YUN DELGADILLO APRN 06/11/17 Problem Qualifiers Additional Impression: Shoulder pain Chronicity: acute Laterality: left Qualified Codes: M25.512 - Pain in left shoulder YUN DELGADILLO APRN Jun 11, 2017 09:28
[2017-06-11] MEDS ORDERED: ASPIRIN 325 MG TABLET PO ONE (09:30)
--- NOTE | 2017-06-11 09:33 | EKG ---
[facility] [address] [place] [address] Test Date: 2017-06-11 Test Time: 09:01:09 Pat Name: OMER WATTS Department: Room: Gender: M Monumental Stonemason: GARRET : 1955 Requested By: YUN DELGADILLO Order Number: [id number] Reading MD: Mehran Davenport Measurements Intervals [place] Rate: 68 P: 34 SD: 190 QRS: 5 QRSD: 88 T: 26 QT: 368 QTc: 396 Interpretive Statements SINUS RHYTHM Electronically Signed On 06-11-2017 10:25:31 CDT by Mehran Davenport
--- NOTE | 2017-06-11 10:02 | RAD ---
Chest, 2 views, 06/11/2017: History: Neck pain radiating to the left shoulder Comparison is made to a study from 11/30/2016. The heart size and pulmonary vascularity are normal. No pulmonary infiltrates are seen. There is no evidence of pleural fluid. There are mild scattered spurs in the spine. IMPRESSION: No acute cardiopulmonary abnormality is detected.
--- NOTE | 2017-06-11 10:04 | RAD ---
Cervical spine, 3 views, 06/11/2017: History: Neck pain There is a mild left convexity cervical scoliosis. C6 and C7 were not optimally visualized in the lateral projection due to the high position of the patient's shoulders. No fracture or dislocation is identified. There are mild to moderate scattered spurs in the mid and lower cervical spine. The prevertebral soft tissues are unremarkable. IMPRESSION: 1. Moderate degenerative change. 2. Mild cervical scoliosis. 3. No acute bony abnormality is detected.
[2017-06-11 10:16] LABS: BASO % 1 % (0-3); EOS % 1 % (0-3); HEMATOCRIT 40.7 % (39.0-53.0); HEMOGLOBIN 13.8 g/dL (13.0-17.5); LYMPH # 1.7 x10^3/uL (1.0-4.8); LYMPH % 34 % (24-48); MEAN CORPUSCULAR HEMOGLOBIN 30 pg (25-35); MEAN CORPUSCULAR HGB CONC 34 g/dL (31-37); MEAN CORPUSCULAR VOLUME 90 fL (79-100); MONO % 7 % (0-9); NEUT % 58 % (31-73); PLATELET COUNT 191 x10^3/uL (140-400); RED BLOOD COUNT 4.55 x10^6/uL (4.30-5.70); WHITE BLOOD COUNT 5.1 x10^3/uL (4.0-11.0)
[2017-06-11 10:21] LABS: CALCIUM 9.5 mg/dL (8.5-10.1); CREATININE 1.3 mg/dL (0.7-1.3); GFR 67.2; POTASSIUM 4.7 mmol/L (3.5-5.1)
[2017-06-11 10:27] LABS: ALBUMIN 3.9 g/dL (3.4-5.0); TOTAL BILIRUBIN 0.3 mg/dL (0.2-1.0)
[2017-06-11 10:30] VITALS: BP 118/73
[2017-06-11] MEDS ORDERED: HYDR-971 PO (10:37)
[2017-06-11] MEDS ORDERED: HYDROcodone/APAP 5/325MG 1 TAB TABLET PO ONE (10:45)
== END 2017-06-11 10:41 | disposition home or self-care (01) ==
LOC: ER 08:53
DX: M54.2 Cervicalgia (principal); M25.512 Pain in left shoulder; R07.89 Other chest pain; J44.9 Chronic obstructive pulmonary disease, unspecified; K21.9 Gastro-esophageal reflux disease without esophagitis; E11.9 Type 2 diabetes mellitus without complications; I10 Essential (primary) hypertension; G89.29 Other chronic pain; M10.9 Gout, unspecified; Z86.73 Personal history of transient ischemic attack (TIA), and cerebral infarction without residual deficits; Z88.2 Allergy status to sulfonamides
CPT/HCPCS: 36415; 71020; 72040; 80053; 84484; 85025; 93005; 99285-25

== ENCOUNTER 2018-01-02 09:08 | Inpatient (IN) | payer OTHER ==
[2018-01-02 09:52] LABS: ADD MAN DIFF? NO
[2018-01-02] MEDS: IV NORMAL SALINE 1000ML BAG 1,000 ML IV (09:54)
[2018-01-02 09:59] LABS: BASO % 1 % (0-3); EOS # 0.1 x10^3/uL (0.0-0.7); EOS % 2 % (0-3); HEMATOCRIT 41.1 % (39.0-53.0); HEMOGLOBIN 13.6 g/dL (13.0-17.5); LYMPH # 0.8 x10^3/uL (1.0-4.8); LYMPH % 16 % (24-48); MEAN CORPUSCULAR HEMOGLOBIN 29 pg (25-35); MEAN CORPUSCULAR HGB CONC 33 g/dL (31-37); MEAN CORPUSCULAR VOLUME 88 fL (79-100); MONO # 0.5 x10^3/uL (0.0-1.1); MONO % 9 % (0-9); NEUT # 3.8 x10^3uL (1.8-7.7); NEUT % 73 % (31-73); PLATELET COUNT 168 x10^3/uL (140-400); RED BLOOD COUNT 4.68 x10^6/uL (4.30-5.70); RED CELL DISTRIBUTION WIDTH 14.9 % (11.5-14.5); WHITE BLOOD COUNT 5.2 x10^3/uL (4.0-11.0)
[2018-01-02 10:07] LABS: INFLUENZA A PATIENT POSITIVE (NEGATIVE); INFLUENZA B PATIENT NEGATIVE (NEGATIVE); OBC FLU VALID
[2018-01-02 10:11] LABS: ANION GAP 10 (6-14); BLOOD UREA NITROGEN 18 mg/dL (8-26); BUN/CREATININE RATIO 13 (6-20); CALCIUM 9.8 mg/dL (8.5-10.1); CARBON DIOXIDE 27 mmol/L (21-32); CHLORIDE 102 mmol/L (98-107); CREATININE 1.4 mg/dL (0.7-1.3); GFR 61.7; GLUCOSE 105 mg/dL (70-99); POTASSIUM 4.2 mmol/L (3.5-5.1); SODIUM 139 mmol/L (136-145)
[2018-01-02] MEDS: IPRATRPIUM/ALBUTEROL 0.5/2.5MG 3 ML NEBU. NEB ×2 (10:14→20:00)
[2018-01-02 10:19] LABS: LACTIC ACID 0.7 mmol/L (0.4-2.0)
[2018-01-02 10:21] LABS: TROPONINI < 0.017 ng/mL (0.000-0.055)
[2018-01-02 10:25] LABS: ALBUMIN 3.6 g/dL (3.4-5.0); ALBUMIN/GLOBULIN RATIO 0.8 (1.0-1.7); ALK PHOS 78 U/L (46-116); ALT (SGPT) 26 U/L (16-63); AST (SGOT) 18 U/L (15-37); CKMB INDEX 0.5 % (0-4); CKMB MASS 0.7 ng/mL (0.0-3.6); CREATINE KINASE 133 U/L (39-308); TOTAL BILIRUBIN 0.4 mg/dL (0.2-1.0); TOTAL PROTEIN 8.3 g/dL (6.4-8.2)
[2018-01-02 10:31] LABS: PROTHROMBIN TIME PATIENT 13.1 SEC (11.7-14.0)
[2018-01-02] MEDS: OSELTAMIVIR 75 MG CAPSULE PO ×2 (10:35→21:27)
[2018-01-02] MEDS: ACETAMINOPHEN 325 MG TABLET. PO (10:35)
[2018-01-02] MEDS ORDERED: ONDANSETRON PF 4 MG/2 ML VIAL. IV (11:30)
[2018-01-02] MEDS ORDERED: MORPHINE SULFATE 4 MG/ML DISP.SYRIN. IV (11:30)
[2018-01-02] MEDS ORDERED: ACETAMINOPHEN 325 MG TABLET. PO (11:30)
[2018-01-02 12:26] LABS: POC GLUCOSE 88 mg/dL (70-99)
[2018-01-02 14:38] LABS: BILIRUBIN,URINE NEGATIVE (NEG); CLARITY,URINE CLEAR; COLOR,URINE YELLOW; GLUCOSE,URINE NEGATIVE (NEG); NITRITE,URINE NEGATIVE (NEG); PH,URINE 5.5; PROTEIN,URINE NEGATIVE (NEG-TRACE); UROBILINOGEN,URINE 0.2 mg/dL (0.2 mg/dL)
[2018-01-02 14:58] LABS: BACTERIA,URINE 0 /HPF (0-FEW); RBC,URINE 0 /HPF (0-2); SQUAMOUS EPITHELIAL CELL,UR FEW /LPF; WBC,URINE 0 /HPF (0-4)
[2018-01-02] MEDS ORDERED: HYDROcodone/APAP 5/325MG 1 TAB TABLET PO (15:45)
[2018-01-02] MEDS: HYDROcodone/APAP 5/325MG 1 TAB TABLET PO (16:08)
[2018-01-02] MEDS ORDERED: PROMETH/CODEINE 6.25/10MG 5 ML SYRUP. PO (16:30)
[2018-01-02 16:39] LABS: POC GLUCOSE 98 mg/dL (70-99)
[2018-01-02] MEDS ORDERED: ACETAMINOPHEN 500 MG TABLET PO (17:00)
[2018-01-02] MEDS ORDERED: ALBUTEROL SULFATE 2.5 MG/3 ML NEBU. NEB (18:00)
[2018-01-02 18:15] LABS: TROPONINI < 0.017 ng/mL (0.000-0.055)
[2018-01-02 20:46] LABS: POC GLUCOSE 134 mg/dL (70-99)
[2018-01-02] MEDS: BENZONATATE 100 MG CAPSULE. PO (21:27)
[2018-01-02] MEDS: methylPREDNISolone SOD SUCC PF 125 MG/2 ML VIAL. IV (21:27)
[2018-01-03 05:29] LABS: BASO % 0 % (0-3); EOS % 0 % (0-3); HEMATOCRIT 39.1 % (39.0-53.0); HEMOGLOBIN 13.1 g/dL (13.0-17.5); LYMPH # 0.6 x10^3/uL (1.0-4.8); LYMPH % 11 % (24-48); MEAN CORPUSCULAR HEMOGLOBIN 30 pg (25-35); MEAN CORPUSCULAR HGB CONC 34 g/dL (31-37); MEAN CORPUSCULAR VOLUME 88 fL (79-100); MONO # 0.1 x10^3/uL (0.0-1.1); MONO % 2 % (0-9); NEUT # 4.3 x10^3uL (1.8-7.7); NEUT % 87 % (31-73); PLATELET COUNT 165 x10^3/uL (140-400); RED BLOOD COUNT 4.45 x10^6/uL (4.30-5.70); RED CELL DISTRIBUTION WIDTH 15.1 % (11.5-14.5); WHITE BLOOD COUNT 4.9 x10^3/uL (4.0-11.0)
[2018-01-03 05:30] LABS: ADD MAN DIFF? YES
[2018-01-03] MEDS: methylPREDNISolone SOD SUCC PF 125 MG/2 ML VIAL. IV (06:00)
[2018-01-03] MEDS: IPRATRPIUM/ALBUTEROL 0.5/2.5MG 3 ML NEBU. NEB ×2 (07:22→11:17)
[2018-01-03 07:46] LABS: POC GLUCOSE 182 mg/dL (70-99)
[2018-01-03 09:16] LABS: ALBUMIN 3.6 g/dL (3.4-5.0); ALBUMIN/GLOBULIN RATIO 0.8 (1.0-1.7); ALK PHOS 82 U/L (46-116); ALT (SGPT) 28 U/L (16-63); ANION GAP 10 (6-14); AST (SGOT) 22 U/L (15-37); BLOOD UREA NITROGEN 19 mg/dL (8-26); BUN/CREATININE RATIO 15 (6-20); CALCIUM 9.8 mg/dL (8.5-10.1); CARBON DIOXIDE 25 mmol/L (21-32); CHLORIDE 100 mmol/L (98-107); CREATININE 1.3 mg/dL (0.7-1.3); GFR 67.2; GLUCOSE 215 mg/dL (70-99); POTASSIUM 4.5 mmol/L (3.5-5.1); SODIUM 135 mmol/L (136-145); TOTAL BILIRUBIN 0.3 mg/dL (0.2-1.0); TOTAL PROTEIN 8.4 g/dL (6.4-8.2)
[2018-01-03 10:37] LABS: % BANDS 6 % (0-9); % LYMPHS 9 % (24-48); % MONOS 3 % (0-10); % SEGS 82 % (35-66); PLT ESTIMATE ADEQUATE (ADEQUATE)
[2018-01-03 11:00] LABS: POC GLUCOSE 187 mg/dL (70-99)
[2018-01-03] MEDS: BENZONATATE 100 MG CAPSULE. PO (11:00)
[2018-01-03] MEDS: OSELTAMIVIR 75 MG CAPSULE PO (11:00)
[2018-01-03] MEDS: FLU VACC QS2017-18 (36MOS+)/PF 0.5 ML SYRINGE. VAX IM (11:04)
== END 2018-01-03 11:36 | disposition home or self-care (01) | DRG 194 ==
LOC: ER 09:08 → 5 SOUTH 10:40
DX: J10.00 Influenza due to other identified influenza virus with unspecified type of pneumonia (principal); J44.0 Chronic obstructive pulmonary disease with (acute) lower respiratory infection; E11.22 Type 2 diabetes mellitus with diabetic chronic kidney disease; N18.3 Chronic kidney disease, stage 3 (moderate); J44.1 Chronic obstructive pulmonary disease with (acute) exacerbation; F17.210 Nicotine dependence, cigarettes, uncomplicated; I12.9 Hypertensive chronic kidney disease with stage 1 through stage 4 chronic kidney disease, or unspecified chronic kidney disease; K21.9 Gastro-esophageal reflux disease without esophagitis; Z82.49 Family history of ischemic heart disease and other diseases of the circulatory system; Z86.73 Personal history of transient ischemic attack (TIA), and cerebral infarction without residual deficits; F32.9 Major depressive disorder, single episode, unspecified; G89.29 Other chronic pain; M10.9 Gout, unspecified
CPT/HCPCS: 36415; 71046; 71250; 80053; 81001; 82553; 82962; 83605; 84484; 85007; 85025; 85610; 87040; 87086; 87804; 87804-59; 90686; 93005; 94640; J2930; J7030; J7620

== ENCOUNTER 2019-01-14 09:42 | Emergency (ER) | payer OTHER ==
[~2019-01-14] VITALS: Ht 180.3 cm; Wt 86.2 kg
[~2019-01-14 09:42] MED LIST changes: +ALBU2.5V8 INH; +ALLO300T PO; +AMLO5TAB10 PO; +ASPI1CPM PO; +BENZ-8 PO; +CETI10TA30 PO; +CITA40TA5 PO; +CYCL10TA2 PO; +GLIP10TA13 PO; +HYDR-3164 PO; -HYDR-971 PO; +MELO7.5T29 PO; +METF500T16 PO; +OSEL75CA PO; +PANT20TA2 PO; -PROAIR HFA8.5 GM INH; +TRAZ-118 PO
[2019-01-14 10:17] VITALS: BP 133/79
--- NOTE | 2019-01-14 10:37 | PHYS DOC ---
Past Medical History Past Medical History: Diabetes-Type II, Hypertension, Other Additional Past Medical Histor: CHRONIC NECK PAIN, GOUT,PTSD Past Surgical History: Other Additional Past Surgical Histo: FACIAL RECONSTRUCTION,PLATE IN SKULL Alcohol Use: Occasionally Drug Use: None Adult General Chief Complaint Chief Complaint: OTHER COMPLAINTS HPI HPI Patient is a 63 year old male with history of diabetes type 2, hypertension, gout, who presents to the ED today complaining of 8 out of 10 right wrist pain, bilateral feet pain specifically the great toes that has been going on for a couple days. Patient denies any known injury. He believes he has a gout flare up. He states he is supposed to be on allopurinol but stopped taking it a while ago because he did not have any symptoms, he states he unfortunately has been eating the wrong foods including sausages. Denies any fever. Review of Systems Review of Systems Constitutional: Denies fever or chills [] Eyes: Denies change in visual acuity, redness, or eye pain [] HENT: Denies nasal congestion or sore throat [] Respiratory: Denies cough or shortness of breath [] Cardiovascular: No additional information not addressed in HPI [] GI: Denies abdominal pain, nausea, vomiting, bloody stools or diarrhea [] : Denies dysuria or hematuria [] Musculoskeletal: Reports right wrist pain, bilateral feet pain specifically great toes. Integument: Denies rash or skin lesions [] Neurologic: Denies headache, focal weakness or sensory changes [] All other systems were reviewed and found to be within normal limits, except as documented in this note. Current Medications Current Medications Current Medications Medications (Trade) Dose Ordered Sig/Justina Start Time Stop Time Status Last Admin Dose Admin Acetaminophen/ Hydrocodone Bitart (Lortab 5/325) 2 tab 1X ONCE 01/14/19 12:00 01/14/19 12:01 DC 01/14/19 12:05 2 TAB Colchicine (Colcrys) 1.2 mg 1X ONCE 01/14/19 12:00 01/14/19 12:01 DC 01/14/19 12:04 1.2 MG Meloxicam (Mobic) 7.5 mg 1X STAT 01/14/19 11:46 01/14/19 11:50 DC 01/14/19 12:03 7.5 MG Prednisone (Prednisone) 50 mg 1X ONCE 01/14/19 12:00 01/14/19 12:01 DC 01/14/19 12:06 50 MG Allergies Allergies Allergies Coded Allergies Type Severity Reaction Last Updated Verified Sulfa (Sulfonamide Antibiotics) Allergy Intermediate HIVES 01/02/18 No Physical Exam Physical Exam Constitutional: Well developed, well nourished, no acute distress, non-toxic appearance. [] HENT: Normocephalic, atraumatic, bilateral external ears normal, oropharynx moist, no oral exudates, nose normal. [] Eyes: PERRLA, EOMI, conjunctiva normal, no discharge. [] Neck: Normal range of motion, no tenderness, supple, no stridor. [] Cardiovascular:Heart rate regular rhythm, no murmur [] Lungs & Thorax: Bilateral breath sounds clear to auscultation [] Abdomen: Bowel sounds normal, soft, no tenderness, no masses, no pulsatile masses. [] Skin: Warm, dry, no erythema, no rash. [] Back: No tenderness, no CVA tenderness. [] Extremities: Right wrist with no obvious deformity. Diffuse tenderness throughout the wrist, no warmth to the wrist, no swelling, no scaphoid tenderness, full range of motion to the right wrist including flexion and extension, plantar flexion and dorsiflexion, adequate radial, medial, ulnar sensation to the right upper extremity. +2 right radial pulse. Cap refill less than 2 seconds the right wrist. Bilateral great toes with no obvious edema and ecchymosis warmth or tenderness on physical exam. Full range of motion to bilateral feet. +2 bilateral pedal pulses. Cap refill less than 2 seconds bilateral lower extremities. Neurologic: Alert and oriented X 3, normal motor function, normal sensory function, no focal deficits noted. [] Psychologic: Affect normal, judgement normal, mood normal. [] Current Patient Data Vital Signs Vital Signs Date Time Temp Pulse Resp B/P (MAP) Pulse Ox O2 Delivery O2 Flow Rate FiO2 01/14/19 12:05 16 97 Room Air 01/14/19 10:17 98.4 88 133/79 (97) 98.4 Lab Values Laboratory Tests Test 01/14/19 10:42 White Blood Count 5.0 x10^3/uL (4.0-11.0) Red Blood Count 4.66 x10^6/uL (4.30-5.70) Hemoglobin 13.5 g/dL (13.0-17.5) Hematocrit 41.7 % (39.0-53.0) Mean Corpuscular Volume 89 fL (79-100) Mean Corpuscular Hemoglobin 29 pg (25-35) Mean Corpuscular Hemoglobin Concent 33 g/dL (31-37) Red Cell Distribution Width 15.4 % (11.5-14.5) H Platelet Count 209 x10^3/uL (140-400) Neutrophils (%) (Auto) 67 % (31-73) Lymphocytes (%) (Auto) 27 % (24-48) Monocytes (%) (Auto) 5 % (0-9) Eosinophils (%) (Auto) 1 % (0-3) Basophils (%) (Auto) 0 % (0-3) Neutrophils # (Auto) 3.4 x10^3uL (1.8-7.7) Lymphocytes # (Auto) 1.4 x10^3/uL (1.0-4.8) Monocytes # (Auto) 0.3 x10^3/uL (0.0-1.1) Eosinophils # (Auto) 0.0 x10^3/uL (0.0-0.7) Basophils # (Auto) 0.0 x10^3/uL (0.0-0.2) Sodium Level 140 mmol/L (136-145) Potassium Level 4.2 mmol/L (3.5-5.1) Chloride Level 104 mmol/L (98-107) Carbon Dioxide Level 23 mmol/L (21-32) Anion Gap 13 (6-14) Blood Urea Nitrogen 16 mg/dL (8-26) Creatinine 1.2 mg/dL (0.7-1.3) Estimated GFR (Cockcroft-Gault) 73.5 Glucose Level 143 mg/dL (70-99) H Uric Acid 4.8 mg/dL (3.5-7.2) Calcium Level 9.4 mg/dL (8.5-10.1) Laboratory Tests 01/14/19 10:42 Laboratory Tests 01/14/19 10:42 EKG EKG [] Radiology/Procedures Radiology/Procedures [] Course & Med Decision Making Course & Med Decision Making Pertinent Labs and Imaging studies reviewed. (See chart for details) This is a 63-year-old male patient presenting to the ED today with right wrist pain and bilateral great toe pain consistent with his gout attack. He is supposed to be on allopurinol but stopped taking it a while back and has been eating foods not recommended for diabetes or gout. CBC with no acute findings. BMP with glucose of 143, anion gap is normal, uric acid levels are normal. Talked to patient about his labs, patient states he had a believes this is a gout attack and would like to be treated for the same. Give him colchicine in the ED. Discharged with the same including Mobic and steriods for 5 days. Dragon Disclaimer Dragon Disclaimer This electronic medical record was generated, in whole or in part, using a voice recognition dictation system. Departure Departure Impression: Primary Impression: Gout Disposition: 01 HOME, SELF-CARE Condition: STABLE Referrals: UNKNOWN PCP NAME (PCP) follow up with your doctor in 1 week Patient Instructions: Gout, [id number] Additional Instructions: You were evaluated in the emergency room for pain. Please use the medications as prescribed. Follow up with your doctor in 1-2 weeks. Scripts Meloxicam (MOBIC) 7.5 Mg Tablet 1 TAB PO DAILY, #14 TAB 0 Refills Prov: CRISTIN ROBERTSON APRN 01/14/19 Colchicine (Colchicine) 0.6 Mg Capsule 0.6 MG PO ONCE, #1 CAP take it in 2 hours Prov: CRISTIN ROBERTSON APRN 01/14/19 Prednisone (PREDNISONE) 50 Mg Tablet 1 TAB PO DAILY, #4 TAB Prov: CRISTIN ROBERTSON APRN 01/14/19 Problem Qualifiers Primary Impression: Gout Gout site: foot Gout etiology: unspecified cause Chronicity: chronic Laterality: right Qualified Codes: M1A.0710 - Idiopathic chronic gout, right ankle and foot, without tophus (tophi) CRISTIN ROBERTSON APRN Jan 14, 2019 10:37
[2019-01-14 10:51] LABS: BASO % 0 % (0-3); EOS % 1 % (0-3); HEMATOCRIT 41.7 % (39.0-53.0); HEMOGLOBIN 13.5 g/dL (13.0-17.5); LYMPH # 1.4 x10^3/uL (1.0-4.8); LYMPH % 27 % (24-48); MEAN CORPUSCULAR HEMOGLOBIN 29 pg (25-35); MEAN CORPUSCULAR HGB CONC 33 g/dL (31-37); MEAN CORPUSCULAR VOLUME 89 fL (79-100); MONO # 0.3 x10^3/uL (0.0-1.1); MONO % 5 % (0-9); NEUT # 3.4 x10^3uL (1.8-7.7); NEUT % 67 % (31-73); PLATELET COUNT 209 x10^3/uL (140-400); RED BLOOD COUNT 4.66 x10^6/uL (4.30-5.70); RED CELL DISTRIBUTION WIDTH 15.4 % (11.5-14.5)
[2019-01-14 10:59] LABS: CALCIUM 9.4 mg/dL (8.5-10.1); CREATININE 1.2 mg/dL (0.7-1.3); GFR 73.5; POTASSIUM 4.2 mmol/L (3.5-5.1)
[2019-01-14 11:02] LABS: URIC ACID 4.8 mg/dL (3.5-7.2)
[2019-01-14] MEDS ORDERED: MELOXICAM 7.5 MG TABLET PO STA (11:46)
[2019-01-14] MEDS ORDERED: predniSONE 10 MG TABLET PO ONE (12:00)
[2019-01-14] MEDS ORDERED: HYDROcodone/APAP 5/325MG 1 TAB TABLET PO ONE (12:00)
[2019-01-14] MEDS ORDERED: COLCHICINE 0.6 MG TABLET PO ONE (12:00)
[2019-01-14] MEDS ORDERED: PRED50TA PO (12:34)
[2019-01-14] MEDS ORDERED: COLC0.6C3 PO (12:34)
[2019-01-14] MEDS ORDERED: MELO7.5T5 PO (12:34)
== END 2019-01-14 12:44 | disposition home or self-care (01) ==
LOC: ER 09:42
DX: M1A.0710 Idiopathic chronic gout, right ankle and foot, without tophus (tophi) (principal); M25.531 Pain in right wrist; M79.672 Pain in left foot; E11.9 Type 2 diabetes mellitus without complications; I10 Essential (primary) hypertension; Z88.2 Allergy status to sulfonamides
CPT/HCPCS: 36415; 80048; 84550; 85025; 99284; J7512

== ENCOUNTER 2020-07-24 11:10 | Inpatient (IN) | payer OTHER ==
[~2020-07-24] VITALS: Ht 182.9 cm; Wt 88.6 kg
[~2020-07-24 11:10] MED LIST changes: +AMLO-186 PO; -AMLO5TAB10 PO; +COLC0.6C3 PO; +MELO7.5T5 PO
[2020-07-24] MEDS ORDERED: diphenhydrAMINE 50 MG/ML VIAL IVP ONE (11:30)
[2020-07-24] MEDS ORDERED: DEXAMETHASONE SOD PHOS 4 MG/ML VIAL IVP ONE (11:30)
[2020-07-24] MEDS ORDERED: EPINEPHrine 1 MG/ML VIAL SQ ONE (11:30)
[2020-07-24] MEDS ORDERED: FAMOTIDINE 20 MG/2 ML VIAL IVP ONE (11:30)
[2020-07-24] MEDS ORDERED: TRANEXAMIC ACID 1,000 MG in IV NORMAL SALINE 50ML 50 ML INJ ONE (12:45)
[2020-07-24] MEDS ORDERED: DEXTROSE 50% 25 GM / 50ML DISP.SYRIN. IV PRN (15:00)
--- NOTE | 2020-07-24 15:05 | PDOC1 ---
History and Physical Date of Admission Date of Admission DATE: 07/24/20 TIME: 14:45 Identification/Chief Complaint Chief Complaint Tongue swelling Source Source: Caregiver, Patient History of Present Illness History of Present Illness Patient is a 65-year-old -[place] male with past medical history of hypertension, CVA, who presents with worsening left-sided tongue swelling since last night. Patient states he was recently started on lisinopril 1 week ago, and since last night he has noticed worsening swelling of his tongue with associated difficulty speaking and cough. Patient came to the ER today for co ncerns of his worsening symptoms. Upon arrival in ER patient received some tranexamic acid, Pepcid, Benadryl, and Solu-Medrol. Since his treatment patient has noted some improvement in his swelling and states he is able to talk better. Due to his current presentation I have been asked to admit patient for angioedema. Past Medical History Past Medical History Hypertension, DM2, CVA, DDD Pulmonary: COPD Past Surgical History Past Surgical History Right face surgery Family History Family History Hypertension Family History: Hypertension Social History Smoke: 1 pack per day ALCOHOL: occassional Drugs: None Current Medications Current Medications Current Medications Dexamethasone Sodium Phosphate (Decadron) 10 mg 1X ONCE IVP Last administered on 07/24/20at 11:38; Start 07/24/20 at 11:30; Stop 07/24/20 at 11:31; Status DC Diphenhydramine HCl (Benadryl) 25 mg 1X ONCE IVP Last administered on 07/24/20at 11:38; Start 07/24/20 at 11:30; Stop 07/24/20 at 11:31; Status DC Epinephrine HCl (Adrenalin) 0.3 mg 1X ONCE SQ Last administered on 07/24/20at 11:37; Start 07/24/20 at 11:30; Stop 07/24/20 at 11:31; Status DC Famotidine (Pepcid Vial) 20 mg 1X ONCE IVP Last administered on 07/24/20at 11:37; Start 07/24/20 at 11:30; Stop 07/24/20 at 11:31; Status DC Tranexamic Acid 1000 mg/Sodium Chloride 60 ml @ 300 mls/hr 1X ONCE INJ Last administered on 07/24/20at 12:46; Start 07/24/20 at 12:45; Stop 07/24/20 at 12:56; Status DC Active Scripts Active Mobic (Meloxicam) 7.5 Mg Tablet 1 Tab PO DAILY Colchicine 0.6 Mg Capsule 0.6 Mg PO ONCE take it in 2 hours Prednisone 50 Mg Tablet 1 Tab PO DAILY Tamiflu (Oseltamivir Phosphate) 75 Mg Capsule 75 Mg PO BID Benzonatate 100 Mg Capsule 100 Mg PO [id number] [place] 5-325 Tablet (Acetaminophen/Hydrocodone Bitart) 1 Each Tablet 1 Tab PO PRN Q6HRS PRN Proair Hfa Inhaler (Albuterol Sulfate) 8.5 Gm Hfa.aer.ad 2 Puff INH Q4-6HRS PRN [place] 5-325 Tablet (Acetaminophen/Hydrocodone Bitart) 1 Each Tablet 1 Tab PO PRN Q6HRS PRN Reported Metformin Hcl 500 Mg Tablet 500 Mg PO BIDWMEALS Glipizide 10 Mg Tablet 1 Tab PO BID Allopurinol 300 Mg Tablet 1 Tab PO DAILY Trazodone Hcl 50 Mg Tablet 1 Tab PO QHS Cyclobenzaprine Hcl 10 Mg Tablet 1 Tab PO TID PRN Meloxicam 7.5 Mg Tablet 7.5 Mg PO DAILY Protonix (Pantoprazole Sodium) 20 Mg Tablet.dr 1 Tab PO DAILY Amlodipine Besylate 5 Mg Tablet 5 Mg PO DAILY Citalopram Hbr (Citalopram Hydrobromide) 40 Mg Tablet 1 Tab PO DAILY Cetirizine Hcl 10 Mg Tab.chew 10 Mg PO Aggrenox 25 Mg-200 Mg Capsule (Aspirin/Dipyridamole) 1 Each Cpmp.12hr 1 Cap PO BID Allergies Allergies: Coded Allergies: Sulfa (Sulfonamide Antibiotics) (Unverified Allergy, Intermediate, HIVES, 01/02/18) bisacodyl (Verified Allergy, Unknown, 07/24/20) ROS Review of System GENERAL: No history of weight change, weakness or fevers. SKIN: No bruising, hair changes or rashes. EYES: No blurred, double or loss of vision. NOSE AND THROAT: Tongue swelling HEART: Denies chest pain, denies palpitations. LUNGS: Cough. Denies hemoptysis, wheezing or shortness of breath. GASTROINTESTINAL: Denies nausea, vomiting, abdominal pain. GENITOURINARY: Denies dysuria, frequency, urgency, hematuria. NEUROLOGIC: Denies history of numbness, tingling, tremor or weakness. PSYCHIATRIC: Denies anxiety, denies depression. ENDOCRINE: No history of heat or cold intolerance, polyuria or polydipsia. EXTREMITIES: Denies muscle weakness, joint pain, pain on walking or stiffness. Physical Exam Physical Exam General: Alert, Oriented X3, Cooperative, No acute distress HEENT: Left tongue swelling. PERRLA, EOMI Lungs: Clear to auscultation, Normal air movement Heart: RRR, no murmurs Cardiovascular: S1, S2 Abdomen: Normal bowel sounds, Soft, No tenderness Extremities: No clubbing, No cyanosis Skin: No rashes, No significant lesion Neuro: Normal speech, Normal tone, Sensation intact Psych/Mental Status: Mental status NL, Mood NL Vitals Vitals Vital Signs Date Time Temp Pulse Resp B/P (MAP) Pulse Ox O2 Delivery O2 Flow Rate FiO2 07/24/20 12:46 82 137/76 (96) 97 Room Air 07/24/20 11:23 98.4 20 98.4 VTE Prophylaxis Ordered VTE Prophylaxis Devices: Yes VTE Pharmacological Prophylaxi: No Assessment/Plan Assessment/Plan Angioedema DM2 Hypertension Plan: Admit patient to ICU for acute monitoring of airway compromise. Per patient and , there is noticeable improvement in his tongue swelling. This continues he may discharge home tomorrow, but does require overnight observation Solu-Medrol 40 mg every 12 hours, Pepcid 20 mg every 6 hours, Benadryl 25 mg every 6 hours. Consult pulmonology for urgent intubation if necessary Upon discharge we will discontinue patient's lisinopril High-dose sliding scale insulin Resume home medication FEN - full liquid diet PPX - SCDs FULL CODE Dispo - inpatient for above Justifications for Admission Other Justification JASMINE LEVI MD Jul 24, 2020 15:05
[2020-07-24] MEDS ORDERED: hydrOXYzine 25 MG TABLET PO PRN (15:15)
[2020-07-24] MEDS ORDERED: ACETAMINOPHEN 325 MG TABLET. PO PRN (15:15)
[2020-07-24] MEDS ORDERED: MAG HYDROX/ALUMINUM HYD/SIMETH 30 ML ORAL.SUSP PO PRN (15:15)
[2020-07-24] MEDS ORDERED: MORPHINE SULFATE 2 MG/ML VIAL. IV PRN (15:15)
[2020-07-24] MEDS ORDERED: 0.9 % SODIUM CHLORIDE 10 ML DISP.SYRIN. IV PRN (15:15)
--- NOTE | 2020-07-24 15:50 | ED.ADGEN ---
Past Medical History Past Medical History: COPD, Diabetes-Type II, Hypertension, Other Additional Past Medical Histor: CHRONIC NECK PAIN, GOUT,PTSD Past Surgical History: Other Additional Past Surgical Histo: FACIAL RECONSTRUCTION,PLATE IN SKULL Smoking Status: Current Every Day Smoker Alcohol Use: None Drug Use: None General Adult EDM: Chief Complaint: ALLERGIC REACTION HPI: HPI: Patient is a 65 year old male who presents with swelling to his tongue. He states he initially noticed it yesterday but woke up this morning and it was worse. Is gotten slightly worse since he woke up but has mostly been stable. He denies any difficulty with swallowing, talking, shortness of breath. He started lisinopril a week ago. He is never had anything like this before. Review of Systems: Review of Systems: General: Denies fever, chills, sweats, fatigue Eyes: Denies drainage, blurred vision, eye redness HENT: Denies rhinorrhea, sore throat, earache Respiratory: Denies cough, shortness of breath, wheezing Cardiac: Denies edema, palpitations, chest pain GI: Denies abdominal pain, Nausea, vomiting MSK: Denies back pain, neck pain Skin: Denies rash, jaundice Neuro: Denies headache, dizziness Psychiatric: Denies SI/HI Current Medications: Current Medications Medications (Trade) Dose Ordered Sig/Justina Start Time Stop Time Status Last Admin Dose Admin Dexamethasone Sodium Phosphate (Decadron) 10 mg 1X ONCE 07/24/20 11:30 07/24/20 11:31 DC 07/24/20 11:38 10 MG Diphenhydramine HCl (Benadryl) 25 mg 1X ONCE 07/24/20 11:30 07/24/20 11:31 DC 07/24/20 11:38 25 MG Epinephrine HCl (Adrenalin) 0.3 mg 1X ONCE 07/24/20 11:30 07/24/20 11:31 DC 07/24/20 11:37 0.3 MG Famotidine (Pepcid Vial) 20 mg 1X ONCE 07/24/20 11:30 07/24/20 11:31 DC 07/24/20 11:37 20 MG Tranexamic Acid 1000 mg/Sodium Chloride 60 ml @ 300 mls/hr 1X ONCE 07/24/20 12:45 07/24/20 12:56 DC 07/24/20 12:46 300 MLS/HR Allergies: Allergies: Allergies Coded Allergies Type Severity Reaction Last Updated Verified Sulfa (Sulfonamide Antibiotics) Allergy Intermediate HIVES 01/02/18 No bisacodyl Allergy Unknown 07/24/20 Yes Physical Exam: PE: General: Awake, alert, NAD. Well Nourished, well hydrated. Cooperative HEENT: Atraumatic, EOMI, PERRL, airway patent, moist oral mucosa, left-sided mild tongue swelling Neck: Supple, trachea midline Respiratory: CTA bilaterally, normal effort, no wheezing/crackles CV: RRR, no murmur, cap refill <2 GI: Soft, nondistended, nontender, no masses MSK: No obvious deformities Skin: Warm, dry, intact Neuro: A&O x3, speech NL, sensory and motor grossly intact, no focal deficits Psych: Normal affect, normal mood, not suicidal or homicidal Current Patient Data: Vital Signs: Vital Signs Date Time Temp Pulse Resp B/P (MAP) Pulse Ox O2 Delivery O2 Flow Rate FiO2 07/24/20 12:46 82 137/76 (96) 97 Room Air 07/24/20 11:23 98.4 20 98.4 EKG: EKG: [] Heart Score: Risk Factors: Risk Factors: DM, Current or recent (<one month) smoker, HTN, HLP, family history of CAD, obesity. Risk Scores: Score 0 - 3: 2.5% MACE over next 6 weeks - Discharge Home Score 4 - 6: 20.3% MACE over next 6 weeks - Admit for Clinical Observation Score 7 - 10: 72.7% MACE over next 6 weeks - Early Invasive Strategies Radiology/Procedures: Radiology/Procedures: [] Course & Med Decision Making: Course & Med Decision Making Pertinent Labs and Imaging studies reviewed. (See chart for details) Patient is a 65-year-old male who presents to the emergency room complaining of swelling to the tongue. This is likely angioedema due to lisinopril. Patient will need to stop lisinopril which I have discussed with them. Initially swelling was mild and the plan was to observe the patient. Did give him the standard steroids and epinephrine however these are unlikely to be beneficial. Patient swelling got progressively worse and TXA was used and patient was admitted. Patient had significantly better after TXA. He will be observed for full resolution. Dragon Disclaimer: Dragskyler Disclaimer: This electronic medical record was generated, in whole or in part, using a voice recognition dictation system. Departure Departure Impression: Primary Impression: Angioedema Disposition: 09 ADMITTED INPT THIS HOSP Condition: STABLE Referrals: UNKNOWN PCP NAME (PCP) MARGI JONES MD Jul 24, 2020 15:50
[2020-07-24 16:50] VITALS: BP 155/78
[2020-07-24] MEDS ORDERED: INSULIN LISPRO 300 UNITS/3 ML VIAL. SQ SCH (17:00)
[2020-07-24] MEDS ORDERED: diphenhydrAMINE 50 MG/ML VIAL IVP SCH (18:00)
[2020-07-24] MEDS ORDERED: FAMOTIDINE 20 MG/2 ML VIAL IVP SCH (18:00)
[2020-07-24 19:00] VITALS: BP 132/75
[2020-07-24] MEDS ORDERED: ASPIRIN/DIPYRIDAMOLE 200/25MG CAP.ER.12H. PO SCH (21:00)
[2020-07-24] MEDS ORDERED: BENZONATATE 100 MG CAPSULE. PO SCH (21:00)
[2020-07-24] MEDS ORDERED: traZODone 50 MG TABLET. PO SCH (21:00)
[2020-07-24] MEDS ORDERED: methylPREDNISolone SOD SUCC PF 40 MG/ML VIAL. IV SCH (21:00)
--- NOTE | 2020-07-24 22:05 | NUR ---
Patient asked to leave AMA after senior warehouse clerk denied to stay here at hospital. This RN explained she would be able to come back at 7 in the morning but he said he didn't care. I explained the risks to leaving against medical advice. The patient stated for me to get the paperwork ready, the patient was not combative or aggressive during this. This RN was unable to complete assessment of patient at this time. Patient stated he was feeling better and he would follow up with his primary care physician on Saturday and that he has an appointment in place. This RN notified security and escorted the patient from the hospital. Nothing follows.
[2020-07-25] MEDS ORDERED: PANTOPRAZOLE 40 MG TABLET.DR. PO SCH (07:30)
[2020-07-25] MEDS ORDERED: amLODIPine BESYLATE 5 MG TABLET PO SCH (09:00)
== END 2020-07-24 20:21 | disposition left against medical advice (07) | DRG 916 ==
LOC: ER 11:10 → 4 NORTH 14:39 → ED HOLD 14:39 → 4 NORTH 16:56
PROVIDERS: ADMIT Family Medicine; ATTEND Family Medicine
DX: T78.3XXA Angioneurotic edema, initial encounter (principal); E11.9 Type 2 diabetes mellitus without complications; F17.210 Nicotine dependence, cigarettes, uncomplicated; F43.10 Post-traumatic stress disorder, unspecified; I10 Essential (primary) hypertension; J44.9 Chronic obstructive pulmonary disease, unspecified; Z82.49 Family history of ischemic heart disease and other diseases of the circulatory system; Z86.73 Personal history of transient ischemic attack (TIA), and cerebral infarction without residual deficits; G89.29 Other chronic pain; M10.9 Gout, unspecified; Z88.8 Allergy status to other drugs, medicaments and biological substances; Z79.899 Other long term (current) drug therapy; Z53.29 Procedure and treatment not carried out because of patient's decision for other reasons
CPT/HCPCS: 82962; 96365; 96372; 96375; 99285; J0171; J1100; J1200; J1815; J3490; G0378